=== PATIENT | male | born 1955 | race Caucasian/White ===

== ENCOUNTER 2017-01-12 08:53 | Inpatient (IN) | payer OTHER ==
[2017-01-07 09:56] LABS: CREATININE 1.14 mg/dL (0.55-1.30)
[2017-01-07 10:18] LABS: BILIRUBIN,URINE NEGATIVE (NEGATIVE); CLARITY/URINE CLEAR (CLEAR); COLOR,URINE YELLOW (YELLOW); GLUCOSE,URINE NEGATIVE (NEGATIVE); KETONES,URINE NEGATIVE (NEGATIVE); LEUKOCYTE ESTERASE ,URINE NEGATIVE (NEGATIVE); NITRITE, URINE NEGATIVE (NEGATIVE); PROTEIN URINE NEGATIVE (NEGATIVE); UROBILINOGEN,URINE 0.2 (0.2-1.0)
[2017-01-07 10:20] LABS: BASOPHILS % (AUTO) 0.2 % (0.0-2.0); EOSINOPHILS # (AUTO) 0.3 K/uL (0.0-0.4); EOSINOPHILS % (AUTO) 4.2 % (0.0-4.0); HEMATOCRIT 48.9 % (36-54); HEMOGLOBIN 16.7 g/dL (14.0-18.0); MEAN CORPUSCULAR HEMOGLOBIN 28 pg (27-31); MEAN CORPUSCULAR HGB CONC 34 % (32-36); MEAN CORPUSCULAR VOLUME 81 fL (79.0-98.0); MONOCYTES # (AUTO) 0.9 K/uL (0.0-1.0); MONOCYTES % (AUTO) 11.6 % (1.7-9.3); NEUTROPHILS # (AUTO) 5.9 K/uL (1.8-7.7); PLATELET COUNT (AUTO) 256 K/uL (130-430); RED BLOOD CELL COUNT(AUTO) 6.02 MIL/uL (4.2-6.2); RED CELL DISTRIBUTION WIDTH 13.3 % (9.0-15.0); WHITE BLOOD COUNT (AUTO) 8.1 K/uL (4.8-10.8)
[2017-01-07 10:27] LABS: BLOOD, URINE TRACE (NEGATIVE)
[2017-01-07 10:42] LABS: BACTERIA,URINE FEW /HPF (None Seen); RBC,URINE 0-3 /HPF (0-3); WBC,URINE 0-3 /HPF (0-3)
[~2017-01-12] VITALS: Ht 190.5 cm; Wt 111.1 kg
[2017-01-12] MEDS ORDERED: VANCOMYCIN HCL 1 GM/NS PREMIX 250 ML IV ONE (09:45)
[2017-01-12] MEDS ORDERED: CEFAZOLIN 2 GM IVPB PREMIX 50 ML IV ONE ×2 (09:45→14:00)
[2017-01-12] MEDS ORDERED: HYDR12.585 PO (10:14)
[2017-01-12] MEDS ORDERED: LORA10TA7 PO (10:14)
[2017-01-12] MEDS ORDERED: IBUP-2101 PO (10:14)
[2017-01-12] MEDS ORDERED: LISI10TA5 PO (10:14)
[2017-01-12] MEDS ORDERED: SIMV10TA2 PO (10:14)
[2017-01-12] MEDS ORDERED: TRANEXAMIC ACID 1,000 MG/10 ML VIAL IV ONE ×2 (12:00→14:00)
[2017-01-12] MEDS ORDERED: VANCOMYCIN HCL 1000 MG/VIAL IV ONE (14:00)
[2017-01-12] MEDS ORDERED: PROPOFOL 200MG/ 20ML VIAL (DIPRIVAN) IV ONE (14:00)
[2017-01-12] MEDS ORDERED: NS 100 ML BAG IV ONE (14:00)
[2017-01-12] MEDS ORDERED: MIDAZOLAM HCL 5 MG/5 ML VIAL ONE (14:00)
[2017-01-12] MEDS ORDERED: ONDANSETRON HCL 4 MG/2 ML VIAL ONE (14:00)
[2017-01-12] MEDS ORDERED: BUPIVACAINE /DEX PF 0.75% SPINAL 2 ML AMP INJ ONE (14:00)
[2017-01-12] MEDS ORDERED: MORPHINE SULFATE 10MG/10ML PF AMP ONE (14:00)
[2017-01-12] MEDS ORDERED: LR 1,000 ML IV.SOLN IV ONE (14:00)
[2017-01-12] MEDS ORDERED: LR 1,000 ML IV SCH (14:06)
[2017-01-12] MEDS ORDERED: METOCLOPRAMIDE HCL 10 MG/2 ML VIAL IVP PRN (14:15)
[2017-01-12] MEDS ORDERED: MORPHINE 2 MG/ML INJ. SYRINGE IVP PRN ×3 (14:15)
[2017-01-12] MEDS ORDERED: MORPHINE SULFATE 10MG/10ML PF AMP SP SCH (14:15)
[2017-01-12] MEDS ORDERED: ONDANSETRON HCL 4 MG/2 ML VIAL IVP PRN ×2 (14:15→14:45)
[2017-01-12] MEDS ORDERED: NALOXONE HCL 0.4 MG/ML AMP (NARCAN) IVP PRN (14:15)
[2017-01-12] MEDS ORDERED: DIPHENHYDRAMINE INJ 50 MG/ML VIAL IM PRN (14:15)
[2017-01-12] MEDS ORDERED: KETOROLAC TROMETHAMINE 60 MG/2 ML VIAL IM PRN (14:15)
[2017-01-12] MEDS ORDERED: DIPHENHYDRAMINE HCL 25 MG CAPSULE PO PRN (14:45)
[2017-01-12] MEDS ORDERED: POLYMYXIN 500,000/BACIT.10,000 UNITS in NS IRR 1 L IR ONE (14:59)
[2017-01-12 15:35] VITALS: BP 123/55; PULSE 56; RESP 18; TEMP 96.1; O2SAT 96
--- NOTE | 2017-01-12 15:35 | NUR ---
NOTES RECEIVED PT FROM [facility]OVERY AWAKE, ALERT AND ORIENTED. S/P LEFT TOTAL KNEE ARTHROPLASTY. DRESSING DRY AND INTACT. WITH HEMOVAC WITH SMALL BLOODY DRAINAGE NOTED.POLAR CARE. ABLE TO MOVE BILATERAL FEET BUT NOT ABLE TO MOVE TOES YET. ON BILATERAL HEEL PROTECTOR. MAN CATH DRAINING YELLOW URINE. LR RUNNING AT THIS TIME. ORIENTED TO CALL LIGHT USE, PAIN MANAGEMENT AND SAFETY PRECAUTION. WILL MONITOR.
--- NOTE | 2017-01-12 15:55 | NUR ---
cons for dr amira smith Addendum: 01/12/17 at 1556 by Anel Omalley DE/ akiko cornejo at dr medel
--- NOTE | 2017-01-12 16:00 | NUR ---
NOTES RESTING IN BED, FAMILY AT BEDSIDE. PT IS DIAPHORETIC. PT STATED THAT HE ALWAYS SWEATY EVEN AT HOME. DENIES ANY PAIN OR DISCOMFORT. DENIES ANY SHORTNESS OF BREATH. WILL MONITOR.
[2017-01-12 16:33] VITALS: PULSE 51
--- NOTE | 2017-01-12 17:30 | NUR ---
MD ROUNDS SEEN BY MOOSE CONN. MADE AWARE OF PT'S HR OF 45-46 WHEN ASLEEP. MD ITS OK.
[2017-01-12] MEDS ORDERED: TRANEXAMIC ACID 1,000 MG in NS 50 ML IV ONE (17:45)
[2017-01-12] MEDS: KETOROLAC TROMETHAMINE 15 MG VIAL IVP SCH ×2 (18:16→23:18)
--- NOTE | 2017-01-12 18:29 | NUR ---
CONSULTATION PAGED REASON FOR CONSULTATION:MED MANAGEMENT WAS CONSULT CALLED?Y PERSON WHO WAS NOTIFIED:KRISTAL CONSULTING PHYSICIAN:NAKUL TUTTLE TERRAZZO WORKER HELPER SPECIALTY:CARDIO TERRAZZO WORKER HELPER PHONE NUMBER:[phone]
--- NOTE | 2017-01-12 18:34 | NUR ---
PAGED PAGED [place] AT [phone]HANES GIRALDO WILLIAM OVERNIGHT BABYSITTER.
--- NOTE | 2017-01-12 18:50 | NUR ---
MD CALLED/ HEMOVAC SPOKE TO DR. HOWE. AUTOMOTIVE SOFTWARE ENGINEER FOR DR. BRANDON AND MADE AWARE OF HEMOVAC OUTPUT OF 270.
--- NOTE | 2017-01-12 18:54 | NUR ---
NOTES IN BED, THROW UP AFTER EATING DINNER. REFUSED ZOFRAN. PT STATED HE IS FINE, ABLE TO MOVE BOTH LEGS AND TOES. FAMILY AT BEDSIDE. ALL NEEDS MEET. WILL ENDORSE
--- NOTE | 2017-01-12 19:29 | NUR ---
Initial PM Note Pt was received lying in bed fully AAO x4. Speech is clear and pt is able to make his needs known. No c/o pain or discomfort. IVF is infusing well in Lt hand without any signs of infiltration at the IV site. Lt knee dressing is clean, dry and intact with Polar care in place. Hemovac to LT knee noted with small amount of bloody drainage. Neurovascular checks to BLE are WNL. All toes have good capillary refills. Bridges cath to gravity drainage is draining clear yellowish urine. Pt has good demonstration of IS with volume up to 3000ml. Pt instructed to use IS 10x Q 1hr while awake and pt verbalized understanding. Fall and safety precautions are in place. Pt instructed to call for assistance as needed and pt verbalized understanding. Bed is in the lowest and locked positions. Call light is with pt. Will continue to monitor pt.
[2017-01-12 19:30] VITALS: BP 126/85; PULSE 56; RESP 18; TEMP 97; O2SAT 99
[2017-01-12] MEDS: SENNOSIDES 8.6 MG TABLET PO SCH (20:41)
--- NOTE | 2017-01-12 21:30 | NUR ---
Rounds Pt is resting quietly in bed and watching TV. No c/o pain or discomfort. Call light is with pt.
[2017-01-12] MEDS: D5/0.45 NS 1,000 ML IV SCH ×2 (21:52→22:35)
--- NOTE | 2017-01-12 23:15 | NUR ---
Emesis Pt vomited approximately 200ml of partially digested food. Pt was offered oral care and nausea/vomiting medication, but pt declined. Pt stated it is from the anesthetic and he feels much better after he vomited. IVF is infusing well in Lt hand and call light is with pt.
[2017-01-13] VITALS (7 sets, daily range): BP systolic 126–137; BP diastolic 68–86; PULSE 66–90; RESP 15–20; TEMP 96.2–99.6; O2SAT 95–98
--- NOTE | 2017-01-13 01:00 | NUR ---
Rounds Pt is sleeping comfortably in bed. Call light is with pt and IVF is infusing well. Lt knee dressing remains CDI with Hemovac and Polar care in place.
--- NOTE | 2017-01-13 03:00 | NUR ---
Rounds Pt is sleeping without any distress noted. IVF is infusing well and call light is with pt.
--- NOTE | 2017-01-13 04:30 | NUR ---
Rounds Pt is sleeping comfortably in bed and IVF is infusing well. Call light is with pt.
[2017-01-13] MEDS: KETOROLAC TROMETHAMINE 15 MG VIAL IVP SCH (05:39)
--- NOTE | 2017-01-13 06:00 | NUR ---
Hemovac Output Hemovac output this shift 350ml bloody drainage. Will notify Dr. Llanos. Pt is resting comfortably in bed and denies pain at this time.
--- NOTE | 2017-01-13 06:22 | NUR ---
Dr. Viet Llanos called and was informed Hemovac output was 350ml this shift. He was also informed AM nurse got Hemovac output of 270ml yesterday evening and the AM nurse notified Dr. Dudley who was covering for him. New order given by Dr. Llanos.
[2017-01-13 06:24] LABS: BASOPHILS % (AUTO) 0.1 % (0.0-2.0); EOSINOPHILS % (AUTO) 0.1 % (0.0-4.0); HEMATOCRIT 41.5 % (36-54); HEMOGLOBIN 14.4 g/dL (14.0-18.0); LYMPHOCYTES # (AUTO) 0.5 K/uL (1.0-5.5); LYMPHOCYTES % (AUTO) 4.3 % (20.5-51.5); MEAN CORPUSCULAR HEMOGLOBIN 28 pg (27-31); MEAN CORPUSCULAR HGB CONC 35 % (32-36); MEAN CORPUSCULAR VOLUME 81 fL (79.0-98.0); MONOCYTES # (AUTO) 1.1 K/uL (0.0-1.0); MONOCYTES % (AUTO) 9.4 % (1.7-9.3); NEUTROPHILS # (AUTO) 9.9 K/uL (1.8-7.7); NEUTROPHILS % (AUTO) 86.1 % (40.0-70.0); PLATELET COUNT (AUTO) 205 K/uL (130-430); RED CELL DISTRIBUTION WIDTH 13.2 % (9.0-15.0); WHITE BLOOD COUNT (AUTO) 11.5 K/uL (4.8-10.8)
[2017-01-13] MEDS ORDERED: TRANEXAMIC ACID 1,000 MG/10 ML VIAL IV ONE (06:30)
--- NOTE | 2017-01-13 06:30 | NUR ---
Hemovac Output Additional 50ml bloody drainage was emptied from Hemovac.
--- NOTE | 2017-01-13 06:32 | NUR ---
Dr. Viet Llanos called and cancelled the order he gave for Tranexamic Acid. He stated not to give it pending AM lab results. Addendum: 01/13/17 at 0744 by Valentine Schultz RN Dr. Llanos was informed additional 50ml output was emptied from Hemovac giving the total of 400ml this shift. Dr. Llanos stated not to give Tranexamic Acid yet, pending AM lab results.
[2017-01-13 06:45] LABS: CALCIUM 8.4 mg/dL (8.4-11.0); CREATININE 1.07 mg/dL (0.55-1.30)
[2017-01-13] MEDS ORDERED: COMMUNICATION ORDER XX ONE (06:45)
--- NOTE | 2017-01-13 07:00 | NUR ---
Closing Note Pt is awake and resting comfortably in bed. No c/o pain or discomfort at this time. Lt knee dressing remains clean, dry and intact with Polar care and Hemovac in place. All pt's needs were attended to. No fall or injury noted this shift. Will endorse to day shift nurse.
[2017-01-13] MEDS ORDERED: MILK OF MAGNESIA 30 ML UDC PO PRN (07:30)
--- NOTE | 2017-01-13 07:30 | NUR ---
AM NOTES IN BED AWAKE, ALERT AND ORIENTED. PAIN 1/10 PAIN LEVEL. ABLE TO MOVE TOES. USES INCENTIVE SPIROMETER. IVF INFUSING WELL. MAN CATH DRAINING CLEAR YELLOW URINE. V/S. SEEN BY DR. BRANDON AT BEDSIDE. WILL MONITOR.
--- NOTE | 2017-01-13 08:57 | NUR ---
Nutrition Update Sage Scale 17 noted. Pt admitted for unilateral post-traumatic osteoarthritis, Left. Diet: regular BMI: 30.6 kg/m2 RD to follow per nutrition care standards.
[2017-01-13] MEDS: SIMVASTATIN 10 MG TABLET PO SCH (09:12)
[2017-01-13] MEDS: MULTIVITAMINS TAB 1 TABLET PO SCH (09:12)
[2017-01-13] MEDS: HYDROCHLOROTHIAZIDE 12.5 MG CAPSULE (HCTZ) PO SCH (09:12)
[2017-01-13] MEDS: LISINOPRIL 10 MG TABLET (PRINIVIL) PO SCH (09:12)
[2017-01-13] MEDS: LORATADINE 10 MG TABLET PO SCH (09:12)
[2017-01-13] MEDS: ASCORBIC ACID 500 MG TABLET PO SCH ×2 (09:13→20:31)
--- NOTE | 2017-01-13 10:00 | NUR ---
NOTES UP WITH THERAPY AT THIS TIME.
[2017-01-13] MEDS: HYDROcodone/ACETAMIN 7.5-325 MG TAB PO PRN ×2 (10:39→14:45)
--- NOTE | 2017-01-13 10:50 | NUR ---
PAIN COMPLAIN OF MODERATE PAIN ON THE KNEE AFTER WALKING WITH THERAPY. MEDICATED ORDERED.
[2017-01-13] MEDS: RIVAROXABAN 10 MG TABLET PO SCH (11:35)
--- NOTE | 2017-01-13 12:30 | NUR ---
NOTES BACK IN BED, EATING LUNCH. PAIN CONTROLLED AT THIS TIME. NO DISTRESS NOTED.
--- NOTE | 2017-01-13 14:50 | NUR ---
PAIN COMPLAIN OF MODERATE PAIN ON THE KNEE. MEDICATED WITH NORCO.
--- NOTE | 2017-01-13 15:38 | NUR ---
DISCHARGE PLANNING DC planning order for 3in1 Commode and FWW. Faxed DME order to [phone]. Spoke with who requested DCP to arrange home health PT. Faxed home health referral to [phone] spoke with Kimberly in intake dept who accepted patient and will call patient due to patient being responsible for 50% per visit. DCP will follow up.
--- NOTE | 2017-01-13 16:30 | NUR ---
NOTES RESTING IN BED AT THIS TIME. PAIN IS CONTROLLED. NO DISTRESS NOTED.
--- NOTE | 2017-01-13 18:50 | NUR ---
CLOSING NOTES IN BED AWAKE, PAIN CONTROLLED AT THIS TIME. ABLE TO MOVE TOES. HEMOVAC OUTPUT IS 260. CHANGE IVF TO KVO. PT TOLERATED PO. ALL NEEDS MEET. WILL ENDORSE
[2017-01-13] MEDS: HYDROcodone/ACETAMIN 10-325 MG TAB PO PRN ×2 (19:24→23:53)
--- NOTE | 2017-01-13 19:49 | NUR ---
OPENING NOTE Pt. and bedside report received from day shift nurse. Pt. is awake, alert and oriented. No s/s of acute distress. Respirations are even and unlabored on 2L o2 nasal cannula. IVF infusing as ordered. Neuro checks done. Hemovac intact. Bridges cath is intact, draining urine by gravity. Walker at bedside. Trapeze and polar care present. SCDS on to right lower extremity. Pt. requested to have foam heel lift boots off at this time. Plan of care discussed. Safety and fall precautions are in place. Encouraged pt. to use call light for needs. Denies any needs at this time. Pt. was medicated for pain by Lina RN. Encouraged pt. to continue deep breathing exercises with incentive spirometer. Will continue to monitor.
[2017-01-13] MEDS: D5/0.45 NS 1,000 ML IV SCH ×2 (20:31→21:13)
[2017-01-13] MEDS: SENNOSIDES 8.6 MG TABLET PO SCH (20:38)
--- NOTE | 2017-01-13 22:11 | NUR ---
ROUNDS Pt. is resting comfortably in bed. Neuro checks done. Pt. denies any pain or discomfort at this time. Safety and fall precautions in place. No s/s of acute distress. Encouraged pt. to continue deep breathing exercises with incentive spirometer. Hemovac is intact maintaining suction. Call light to right side. Will continue to monitor.
--- NOTE | 2017-01-13 23:53 | NUR ---
PAIN Pt. is awake, with c/o pain to left knee. Pt. medicated with [place] 10/325mg PO 1 tab as ordered PRN for severe pain. Educated pt. regarding medication and s/e. Pt. verbalized understanding. Neuro checks done. Call light to right hand. Safety and fall precautions in place. Encouraged pt. to use call light for needs. Will continue to monitor.
--- NOTE | 2017-01-14 02:00 | NUR ---
ROUNDS Late entry due to pt. care. Pt. is resting quietly in bed with no s/s of acute distress. Safety precautions in place. Call light to right hand. Will continue to monitor.
[2017-01-14] MEDS: HYDROcodone/ACETAMIN 10-325 MG TAB PO PRN ×3 (04:13→16:30)
--- NOTE | 2017-01-14 04:16 | NUR ---
PAIN/HEMOVAC Emptied 80 mls of red drainage from hemovac. Continued to maintain suction. Neuro checks done. Pt. c/o pain to left knee. Pt. medicated with [place] 10/325mg 1 tab PO as ordered PRN for severe pain. Educated pt. regarding medication and s/e. Pt. verbalized understanding. HAMMER SMITH at bedside. Pt. denies any other needs at this time. Safety precautions in place. Call light to right hand. Will continue to monitor.
[2017-01-14] MEDS: D5/0.45 NS 1,000 ML IV SCH ×3 (05:05→22:35)
[2017-01-14 05:18] VITALS: BP 122/77; PULSE 81; RESP 16; TEMP 97.8; O2SAT 94
[2017-01-14 06:35] LABS: CHLORIDE 99 mmol/L (98-107); CREATININE 1.08 mg/dL (0.55-1.30); GLUCOSE 122 mg/dL (70-99); POTASSIUM 3.6 mmol/L (3.5-5.1); SODIUM SERUM 133 mmol/L (136-145); UREA NITROGEN, BLOOD 14 mg/dL (8-21)
[2017-01-14 06:40] LABS: ANION GAP < 3 (5-15); GFR AFRICAN AMERICAN 89 mL/min (>90)
[2017-01-14 06:43] LABS: HEMATOCRIT 36.4 % (36-54); HEMOGLOBIN 12.8 g/dL (14.0-18.0); MEAN CORPUSCULAR HEMOGLOBIN 29 pg (27-31); MEAN CORPUSCULAR HGB CONC 35 % (32-36); MEAN CORPUSCULAR VOLUME 84 fL (79.0-98.0); PLATELET COUNT (AUTO) 186 K/uL (130-430); RED BLOOD CELL COUNT(AUTO) 4.36 MIL/uL (4.2-6.2); RED CELL DISTRIBUTION WIDTH 13.1 % (9.0-15.0); WHITE BLOOD COUNT (AUTO) 11.3 K/uL (4.8-10.8)
[2017-01-14 07:38] LABS: BASOPHILS % (MANUAL) 0 % (0-2); EOSINOPHILS % (MANUAL) 2 % (0-7); LYMPHOCYTES % (MANUAL) 3 % (20-46); MONOCYTES % (MANUAL) 15 % (0-11)
--- NOTE | 2017-01-14 07:39 | NUR ---
MAN CATHETER/CLOSING NOTE Man catheter was removed. Pt. tolerated well, catheter tip intact. All needs met. Pt. denies any pain or discomfort at this time. Safety precautions in place. No significant changes. Endorsed care and bedside report given to SVEN Petersen.
--- NOTE | 2017-01-14 07:45 | NUR ---
AM ROUNDS PATIENT RESTING IN BED, AWAKE, ALERT AND ORIENTED X4, STATES MILD BUT TOLERABLE PAIN LEVEL AT THIS TIME, EDUCATED THE PATIENT ON PAIN MANAGEMENT, PATIENT VERBALIZED UNDERSTANDING AT THIS TIME, ASSESSMENT COMPLETE, SURGICAL DRESSING NOTED ON LEFT KNEE, CLEAN, DRY AND INTACT, DR BRANDON TO DO FIRST DRESSING TODAY, MAN CATHETER WAS DISCONTINUED THIS MORNING BY NOC SHIFT NURSE WILL MONITORING FOR VOIDING, IV SITE NOTED TO BE PATENT WITH NO SIGNS OF INFILTRATION AT THIS TIME, HEMOVAC IN PLACE TO BE DISCONTINUED THIS MORNING BY DR BRANDON, SCD'S IN PLACE, EDUCATED THE PATIENT CUT LACE MACHINE OPERATOR LIGHT SYSTEM AND TO CALL FOR ANY ASSISTANCE, PATIENT VERBALIZED UNDERSTANDING AT THIS TIME, BED IN LOWEST POSITION, THREE SIDE RAILS UP, BED ALARM ON, FALL AND ASPIRATION PRECAUTIONS IN PLACE.
[2017-01-14 08:00] VITALS: BP 127/85; PULSE 86; RESP 16; TEMP 98.6; O2SAT 100
[2017-01-14] MEDS: MULTIVITAMINS TAB 1 TABLET PO SCH (08:46)
[2017-01-14] MEDS: HYDROCHLOROTHIAZIDE 12.5 MG CAPSULE (HCTZ) PO SCH (08:46)
[2017-01-14] MEDS: LORATADINE 10 MG TABLET PO SCH (08:47)
[2017-01-14] MEDS: SIMVASTATIN 10 MG TABLET PO SCH (08:47)
[2017-01-14] MEDS: ASCORBIC ACID 500 MG TABLET PO SCH ×2 (08:47→20:00)
[2017-01-14] MEDS: LISINOPRIL 10 MG TABLET (PRINIVIL) PO SCH (08:47)
--- NOTE | 2017-01-14 08:47 | NUR ---
RN ROUNDS PATIENT RESTING IN BED, AWAKE, STATING 7/10 PAIN LEVEL, EDUCATED ON PAIN MANAGEMENT, PATIENT VERBALIZED UNDERSTANDING AT THIS TIME, EDUCATED THE PATIENT ON ALL MEDICATIONS AND POTENTIAL SIDE EFFECTS, PATIENT VERBALIZED UNDERSTANDING AND TOLERATED WELL, NO OTHER NEEDS AT THIS TIME, BED IN LOWEST POSITION, THREE SIDE RAILS UP, BED ALARM ON, CALL LIGHT IN THE PATIENT'S HAND, FALL AND ASPIRATION PRECAUTIONS IN PLACE.
[2017-01-14] MEDS: RIVAROXABAN 10 MG TABLET PO SCH (10:10)
--- NOTE | 2017-01-14 11:38 | NUR ---
DISCHARGE PLANNING Met with patient and patient who are both agreeable with discharge plan home with home health. Patient and were made aware of 50% co-pay per each visit and are agreeable to pay out of pocket cost. Called and spoke with Kimberly singh [facility] who will call patient/family to make visit arrangements. Francine, confirmed patient has FWW at home and did requested patient to have commode and was made aware DCP follow up and will schedule to have delivered to patient home. Patient and Francine both had no additional questions or concerns pertaining to discharge plan at this time. DCP will follow up. Addendum: 01/14/17 at 1156 by Sandy Boyle DP Called and spoke with Kalani singh [facility] [phone] who confirmed faxed urgent order for commode was received and currently pending insurance verification. Once insurance has been verified Kalani will have order processed and will notify patient and DCP with delivery arrangements. DCP will follow up. Addendum: 01/14/17 at 1658 by Sandy Boyle DP Called [employer] [phone] left voice message requesting return call back. Called again and spoke with Bárbara who was able to confirm faxed order was received and currently being processed. Bárbara advised [facility] to follow up at later time. [facility] will follow up in AM.
[2017-01-14 12:10] VITALS: BP 122/51; PULSE 74; RESP 18; TEMP 97.3; O2SAT 98
--- NOTE | 2017-01-14 12:51 | NUR ---
RN ROUNDS PATIENT RESTING IN BED, EYES CLOSED, BREATHING IS EVEN AND UNLABORED, NO SIGNS OF DISTRESS, IS AT THE BEDSIDE, BED IN LOWEST POSITION, THREE SIDE RAILS UP, BED ALARM ON, CALL LIGHT NEXT TO THE PATIENT'S HAND, FALL AND ASPIRATION PRECAUTIONS IN PLACE.
[2017-01-14] MEDS: HYDROcodone/ACETAMIN 7.5-325 MG TAB PO PRN ×2 (13:01→19:46)
--- NOTE | 2017-01-14 13:01 | NUR ---
RN ROUNDS PATIENT CALLING ASKING FOR PAIN MEDICATION, PATIENT STATES MODERATE PAIN LEVEL THAT IS TOLERABLE BUT WOULD LIKE PAIN MEDICATION TO STAY ON TOP OF THE PAIN, EDUCATED ON PAIN MEDICATION AND POTENTIAL SIDE EFFECTS, PATIENT VERBALIZED UNDERSTANDING AND TOLERATE WELL AT THIS TIME, BED IN LOWEST POSITION, THREE SIDE RAILS UP, BED ALARM ON, CALL LIGHT NEXT TO THE PATIENTS' HAND, FALL AND ASPIRATION PRECAUTIONS IN PLACE.
--- NOTE | 2017-01-14 15:25 | NUR ---
RN ROUNDS PATIENT RESTING IN BED, AWAKE, STATES MILD AND TOLERABLE PAIN LEVEL, NOTIFIED BY VEST BUSHELER THAT DR BRANDON WILL BE HERE SHORTLY TO DO DRESSING CHANGE AND ASKED FOR DRESSING TO BE REMOVED, REMOVED DRESSING AT THIS TIME, PATIENT TOLERATED WELL WITH MINIMAL PAIN, WAITING ON DR BRANDON TO SEE THE PATIENT, NO OTHER NEEDS AT THIS TIME, BED IN LOWEST POSITION, THREE SIDE RAILS UP, BED ALARM ON, FALL AND ASPIRATION PRECAUTIONS IN PLACE.
--- NOTE | 2017-01-14 16:00 | NUR ---
DR BRANDON DRESSING CHANGE ASSISTED WITH DRESSING CHANGE, PATIENT TOLERATED WELL AT THIS TIME, QUESTIONS ANSWERED BY DR BRANDON AT THIS TIME.
[2017-01-14 16:01] VITALS: BP 126/63; PULSE 72; RESP 17; TEMP 98; O2SAT 99
--- NOTE | 2017-01-14 16:30 | NUR ---
PAIN MEDICATION PATIENT STATES THAT DURING DRESSING CHANGE HE DID NOT HAVE PAIN, BUT NOW HE IS EXPERIENCING 7/10 PAIN, EDUCATED ON PAIN MEDICATION AND POTENTIAL SIDE EFFECTS, PATIENT VERBALIZED UNDERSTANDING AND TOLERATED WELL AT THIS TIME, NO OTHER NEEDS AT THIS TIME, BED IN LOWEST POSITION, THREE SIDE RAILS UP, BED ALARM ON, CALL LIGHT NEXT TO THE PATIENT'S HAND.
--- NOTE | 2017-01-14 18:16 | NUR ---
CLOSING NOTES PATIENT RESTING IN BED, AWAKE, DENIES PAIN, ALL NEEDS, WILL ENDORSE REPORT TO NOC SHIFT NURSE, BED IN LOWEST POSITION, THREE SIDE RAILS UP, BED ALARM ON, FALL AND ASPIRATION PRECAUTIONS IN PLACE, CALL LIGHT NEXT TO THE PATIENT'S HAND.
--- NOTE | 2017-01-14 19:45 | NUR ---
Initial Notes Patient alert and oriented, able to make needs known. Patient c/o pain, will medicate with pain medicine. No SOB noted. Denies nausea/vomiting at this time. IV site patent, flushes well, infusing fluids as ordered. Surgical site is CDI. Patient repositioned in bed. Goal of pain management, ortho stability and safety this shift. Call light within reach. Will continue to monitor.
[2017-01-14 19:48] VITALS: BP 120/74; PULSE 86; RESP 18; TEMP 99.2; O2SAT 94
[2017-01-14] MEDS: SENNOSIDES 8.6 MG TABLET PO SCH (20:00)
--- NOTE | 2017-01-14 22:00 | NUR ---
Notes Patient awake, watching TV. Denies pain at this time. No SOB noted. IV site patent, flushes well, infusing fluids as ordered. Call light within reach. Will continue to monitor.
--- NOTE | 2017-01-15 00:05 | NUR ---
Notes Patient sleeping at this time. No s/s of pain or discomfort noted. IV site patent, flushes well, infusing fluids as ordered. Afebrile. Call light within reach. Will continue to monitor.
[2017-01-15 00:30] VITALS: BP 124/71; PULSE 85; RESP 18; TEMP 98.8; O2SAT 95
--- NOTE | 2017-01-15 02:15 | NUR ---
Notes Patient denies pain at this time. No SOB noted. IV site patent, flushes well, infusing fluids as ordered. Call light within reach. Will continue to monitor.
[2017-01-15 03:36] VITALS: BP 122/72; PULSE 81; RESP 18; TEMP 99.2; O2SAT 94
[2017-01-15 04:48] VITALS: BP 123/73; PULSE 85; RESP 18; TEMP 98.5; O2SAT 94
[2017-01-15] MEDS: D5/0.45 NS 1,000 ML IV SCH (05:36)
--- NOTE | 2017-01-15 06:28 | NUR ---
Closing Notes Patient denies pain at this time. No SOB noted. Denies nausea/vomiting at this time. IV site patent, flushes well, infusing fluids as ordered. Surgical site is CDI. Patient repositioned in bed. Goal of pain management, ortho stability and safety met. Call light within reach. Will continue to monitor.
[2017-01-15 06:40] LABS: BASOPHILS % (AUTO) 0.3 % (0.0-2.0); EOSINOPHILS # (AUTO) 0.3 K/uL (0.0-0.4); EOSINOPHILS % (AUTO) 3.2 % (0.0-4.0); HEMATOCRIT 38.5 % (36-54); HEMOGLOBIN 12.9 g/dL (14.0-18.0); LYMPHOCYTES # (AUTO) 0.9 K/uL (1.0-5.5); LYMPHOCYTES % (AUTO) 8.8 % (20.5-51.5); MEAN CORPUSCULAR HEMOGLOBIN 28 pg (27-31); MEAN CORPUSCULAR HGB CONC 33 % (32-36); MEAN CORPUSCULAR VOLUME 85 fL (79.0-98.0); MONOCYTES # (AUTO) 1.4 K/uL (0.0-1.0); MONOCYTES % (AUTO) 13.7 % (1.7-9.3); NEUTROPHILS # (AUTO) 7.4 K/uL (1.8-7.7); PLATELET COUNT (AUTO) 190 K/uL (130-430); RED BLOOD CELL COUNT(AUTO) 4.55 MIL/uL (4.2-6.2); RED CELL DISTRIBUTION WIDTH 13.2 % (9.0-15.0)
[2017-01-15 06:47] LABS: CALCIUM 8.4 mg/dL (8.4-11.0); CREATININE 1.04 mg/dL (0.55-1.30); POTASSIUM 3.5 mmol/L (3.5-5.1)
--- NOTE | 2017-01-15 07:45 | NUR ---
AM ROUNDS PATIENT RESTING IN BED, AWAKE, ALERT AND ORIENTED X4, RAYMUNDO PAIN, ASSESSMENT COMPLETE, EDUCATED THE PATIENT TRUCK CHAUFFEUR LIGHT SYSTEM AND TO CALL FOR ANY ASSISTANCE, PATIENT VERBALIZED UNDERSTANDING AT THIS TIME, NEUROVASCULAR CHECK: BILATERAL PEDAL PULSES PRESENT, STRONG AND NORMAL, SENSATION FELT ON BILATERAL LOWER EXTREMITIES, PATIENT IS ABLE TO MOVE TOES AND ANKLES BILATERALLY, PATIENT DENIES NUMBNESS OR TINGLING, DRESSING IS IN PLACE OVER THE LEFT KNEE AND IS CLEAN, DRY AND INTACT, NO OTHER NEEDS AT THIS TIME, BED IN LOWEST POSITION, THREE SIDE RAILS UP, BED ALARM ON, FALL AND ASPIRATION PRECAUTIONS IN PLACE AT THIS TIME.
[2017-01-15 08:03] VITALS: BP 129/81; PULSE 86; RESP 16; TEMP 98; O2SAT 95
--- NOTE | 2017-01-15 09:01 | NUR ---
DISCHARGE PLANNING Called and spoke with Xiao at [employer] who will follow up with DME order for 3in1 Commode and return call to [facility] with update. Xiao was made aware of patient discharge today and DME requesting to be delivered to patient home today. [facility] will follow up. Spoke with Kimberly at [facility] who will call patient/family to make visit arrangements for wound care and PT. [facility] provided patient/family with contact numbers for [facility] and [facility]. Addendum: 01/15/17 at 0912 by Sandy SALVADOR Received call from Mariusz at [employer] who confirmed 3in1 Commode not covered benefit $92.50 mg aponte for DME.
[2017-01-15] MEDS: HYDROCHLOROTHIAZIDE 12.5 MG CAPSULE (HCTZ) PO SCH (09:02)
[2017-01-15] MEDS: LORATADINE 10 MG TABLET PO SCH (09:02)
[2017-01-15] MEDS: MULTIVITAMINS TAB 1 TABLET PO SCH (09:02)
[2017-01-15] MEDS: SIMVASTATIN 10 MG TABLET PO SCH (09:02)
[2017-01-15] MEDS: LISINOPRIL 10 MG TABLET (PRINIVIL) PO SCH (09:02)
[2017-01-15] MEDS: ASCORBIC ACID 500 MG TABLET PO SCH (09:02)
[2017-01-15] MEDS: HYDROcodone/ACETAMIN 7.5-325 MG TAB PO PRN (09:03)
--- NOTE | 2017-01-15 09:05 | NUR ---
RN ROUNDS PATIENT RESTING IN BED, STATING HE HAS MODERATE PAIN, EDUCATED THE PATIENT ON PAIN MEDICATION AND MANAGEMENT, PATIENT VERBALIZED UNDERSTANDING AND TOLERATED WELL, EDUCATED ON ALL OTHER MORNING MEDICATIONS, PATIENT VERBALIZED UNDERSTANDING AT THIS TIME AND TOLERATED WELL, NO OTHER NEEDS AT THIS TIME, BED IN LOWEST POSITION, THREE SIDE RAILS UP, BED ALARM ON, FALL AND ASPIRATION PRECAUTIONS IN PLACE, CALL LIGHT NEXT TO THE PATIENT'S HAND .
--- NOTE | 2017-01-15 10:30 | NUR ---
PHARMACY NOTIFIED OF NEED FOR XARELTO REFILL IN PYXIS, WILL FOLLOW UP.
[2017-01-15] MEDS: RIVAROXABAN 10 MG TABLET PO SCH (11:23)
--- NOTE | 2017-01-15 11:45 | NUR ---
RN ROUNDS PATIENT WITH PHYSICAL THERAPY FOR STAIR TRAINING AND WALKING WITH WALKER PRACTICE, PATIENT DENIES PAIN AT THIS TIME, STABLE CONDITION, WILL CONTINUE TO MONITOR.
[2017-01-15 12:23] VITALS: BP 117/67; PULSE 89; RESP 17; TEMP 97.9; O2SAT 97
[2017-01-15 12:33] VITALS: BP 117/67; PULSE 89; RESP 18; TEMP 97.9; O2SAT 97
--- NOTE | 2017-01-15 13:20 | NUR ---
D/C Patient Patient given medication reconciliation form and D/C instructions. Exit Care provided. Patient verbalized understanding. MD discussed with patient the results and treatment Patient in stable condition, ID band removed. IV catheter removed, intact and dressing applied, no active bleeding. Rx GIVEN BY MD PRIOR TO PATIENT ADMISSION FROM MD OFFICE. Patient educated on pain management. All belongings sent with patient.
--- NOTE | 2017-01-17 10:14 | NUR ---
DISCHARGE PLANNING Received voice message from patient Francine who requested return call back regarding home health. Spoke with Kimberly at [facility] who stated she has been in contact with patient and she requested home health be arranged with in-network home health provider due to cost. Kimberly has forwarded referral to Jim and will keep patient and DCP updated. Addendum: 01/17/17 at 1034 by Sandy SALVADOR Called [facility] spoke with Silke who stated no nursing staff available. Faxed home health referral to innetwork [facility], [facility], and [facility]. DCP will follow up. Addendum: 01/17/17 at 1745 by Sandy Boyle DP Spoke with Suri at [facility] who accepted patient. Suri stated patient has $2,000.00 deductible that has not been met therefore out of pocket cost per PT and wound care visit $120.00 each. Once deductible has been met out of pocket cost will then be $48.00 each PT and wound care visit. Called and spoke with patient Francine who understood and was agreeable with arrangements made. Spoke with Suri who will call patient/family to make visit arrangements to see patient tomorrow.
--- NOTE | 2017-01-17 15:10 | NUR ---
Discharge Follow Up Phone Call: [facility] called pt ([phone]) and pt's , Francine, answered the phone. Pt's states that pt is doing well overall, but is still having some pain; pt's prescriptions have been filled; there are no questions regarding discharge or medication instructions; pt has a follow up appointment scheduled with Dr. Llanos on 01/26/17; pt's has obtained a walker and commode for pt; pt's has been in contact with [facility], regarding home health arrangements. [facility] informed pt's that [facility] will continue to follow up regarding home health for pt and Case Management Assistant will continue to follow up to confirm that services have been arranged. Pt's did not express any other needs or concerns at this time. Case Management Assistant will continue to follow up. Addendum: 01/18/17 at 1149 by Kaitlynn Whitmore LCSW Follow Up [facility] phoned patient's , Francine, . She stated at 10am that the home health agency had not contacted them. WHOLESALE BUYER notified [facility] who phoned [facility] . They will phone patient this am. [facility] phoned patient's at 11:30am. [facility] set up a visit for a dressing change, but stated patient had refused PT. Francine told them that was not so and [facility] is working on the costs. [facility] checked that Francine has [facility] contact information. Francine will call Marilin if there are further problems with home health. Case Management Assistant will remain available upon request.
--- NOTE | 2017-01-19 11:43 | NUR ---
Discharge Follow Up Phone Call: Per request of Glaze CarrierSandy LCSW called pt ([phone]) and spoke with pt's , Francine, to confirm that home health services have began. Pt's states that [facility] nurse visited pt yesterday (01/18/17) for pt's dressing change; pt will receive a visit from PT today; pt is scheduled for a second visit with the nurse for dressing change on 01/20/17. Pt's states that they are happy with the home health services and she expressed her gratitude for Case Management's staff's attentiveness. Pt's did not express any other needs or concerns and denied the need for additional follow up at this time. No further follow up required at this time.
== END 2017-01-15 13:20 | disposition home health service (06) | DRG 470 ==
LOC: SMU 09:32 → STU 15:47 → SMU 01-14 12:36
PROVIDERS: ADMIT Orthopaedic Surgery; ATTEND Orthopaedic Surgery
PROC: 0SRD0J9 Replacement of Left Knee Joint with Synthetic Substitute, Cemented, Open Approach (ICD-10-PCS; principal; 2017-01-12 12:00)
DX: M17.12 Unilateral primary osteoarthritis, left knee (principal); I10 Essential (primary) hypertension; E78.5 Hyperlipidemia, unspecified; F17.210 Nicotine dependence, cigarettes, uncomplicated; E78.00 Pure hypercholesterolemia, unspecified; Z83.1 Family history of other infectious and parasitic diseases; Z80.8 Family history of malignant neoplasm of other organs or systems
CPT/HCPCS: 36415; 71020-TC; 73560-TC; 80048; 81000-TC; 85007; 85025; 85027; 87081; 88305; 88311; 94010; 94760; 97110-GP; 97116-GP; 97530-GP; C1713; C1776; J0690; J1885; J2250; J2274; J2405; J2704; J3370; J3490; J7120